=== PATIENT | female | born 1975 | race American Indian/Alaskan Native ===

== ENCOUNTER 2017-02-06 21:26 | Emergency (ER) | payer SELFPAY ==
[2017-02-06 22:23] VITALS: BP 148/101
[2017-02-06 22:47] LABS: Basophils % (Auto) 0.8 % (0.0-1.8); Eosinophils % (Auto) 1.8 % (0.0-4.3); Hematocrit 37.1 % (30.3-42.9); Hemoglobin 12.1 gm/dl (10.1-14.3); Mean Corpuscular HGB Conc 33 % (30-34); Mean Corpuscular Hemoglobin 27 pg (28-32); Mean Corpuscular Volume 82 fl (79-97); Platelet Count 284 K/mm3 (140-440); Red Blood Count 4.52 M/mm3 (3.65-5.03); Red Cell Distribution Width 13.8 % (13.2-15.2)
[2017-02-06 23:10] LABS: Albumin 4.2 g/dL (3.9-5); BUN/Creatinine Ratio 6.36; Bilirubin,Total 0.3 mg/dL (0.1-1.2); Calcium 9.1 mg/dL (8.4-10.2); Chloride 103.1 mmol/L (98-107); Potassium 4.1 mmol/L (3.6-5.0); Total Protein 8.3 g/dL (6.3-8.2)
--- NOTE | 2017-02-07 17:43 | ED Elopement Review ---
ED Pt Elopement review - Results review Lab results: Laboratory Tests 02/06/17 02/06/17 02/06/17 22:28 22:28 22:28 WBC 5.0 RBC 4.52 Hgb 12.1 Hct 37.1 MCV 82 MCH 27 L MCHC 33 RDW 13.8 Plt Count 284 Lymph % (Auto) 36.8 H [place] % (Auto) 6.2 Eos % (Auto) 1.8 Baso % (Auto) 0.8 Lymph # 1.9 [place] # 0.3 Eos # 0.1 Baso # 0.0 Seg Neutrophils % 54.4 Seg Neutrophils # 2.7 Sodium 143 Potassium 4.1 Chloride 103.1 Carbon Dioxide 26 Anion Gap 18 BUN 7 Creatinine 1.1 Estimated GFR 55 BUN/Creatinine Ratio 6.36 Glucose 95 Calcium 9.1 Total Bilirubin 0.30 AST 24 ALT 24 Alkaline Phosphatase 60 Total Protein 8.3 H Albumin 4.2 Albumin/Globulin Ratio 1.0 HCG, Qual Negative - Call Back decision Pt Call Back Decision: Pt to F/U with PMD
== END 2017-02-07 02:45 | disposition left against medical advice (07) ==
LOC: ED 21:26
DX: H53.2 Diplopia (principal); Z53.21 Procedure and treatment not carried out due to patient leaving prior to being seen by health care provider
CPT/HCPCS: 36415; 80053; 84703; 85025